=== PATIENT | male | born 1970 | race Caucasian/White ===

== ENCOUNTER → 2016-12-28 17:18 | Emergency (ER) | payer SELFPAY ==
[2016-12-28 17:30] VITALS: BP 162/98
== END | disposition left against medical advice (07) ==
LOC: ED 17:18
DX: Z53.21 Procedure and treatment not carried out due to patient leaving prior to being seen by health care provider (principal)

== ENCOUNTER 2018-05-17 08:44 | Emergency (ER) | payer BC ==
[2018-05-17 08:58] VITALS: BP 102/71
--- NOTE | 2018-05-17 09:24 | ED ---
Influenza-Like Illness - HPI Summary HPI Summary: 47 YO wm P/W FLU-LIKE ILLNESS X 4 DAYS, THINKS HE HAS THE FLU HAS F/C/ BODYACHES DARK URINE NO BM DUE TO DECREASED APPETITE. WORKS IN A NH AND NEEDS A WORKNOTE - History of Current Complaint Chief Complaint: UCGeneralIllness Time Seen by Provider: 05/17/18 09:11 Hx Obtained From: Patient Onset/Duration: Lasting Days Associated Signs & Symptoms: Fever, Myalgia, Cough Related Hx: Possible Flu/Infectious Exposure - Allergy/Home Medications Allergies/Adverse Reactions: Allergies Allergy/AdvReac Type Severity Reaction Status Date / Time clarithromycin Allergy Rash Verified 05/17/18 08:59 Horse/Equine Containing Allergy Anaphylatic Verified 05/17/18 08:59 Products Shock Home Medications: Home Medications Lurasidone(*) [Latuda] 60 mg PO DAILY 05/17/18 [History Confirmed 05/17/18] RX: Divalproex ER TAB(*) [Depakote ER TAB(*)] 500 mg PO BID 05/17/18 [History Confirmed 05/17/18] RX: Ibuprofen TAB* [Advil TAB*] 300 mg PO Q6H PRN 05/17/18 [History Confirmed ] RX: buPROPion SR TAB* [Wellbutrin SR TAB*] 300 mg PO DAILY 05/17/18 [History Confirmed 05/17/18] PMH/Surg Hx/FS Hx/Imm Hx Previously Healthy: Yes History: Reports: Hx Benign Prostatic Hyperplasia Sensory History: Reports: Hx Contacts or Glasses Denies: Hx Legally Blind, Hx Macular Degeneration - Hx in right eye; required surgery, Hx Deafness, Hx Hearing Aid Opthamlomology History: Reports: Hx Contacts or Glasses Denies: Hx Legally Blind, Hx Macular Degeneration - Hx in right eye; required surgery Psychiatric History: Reports: Hx Anxiety, Hx Depression, Hx Inpatient Treatment - [facility], Hx [facility] Tx, Hx Bipolar Disorder - Bipolar II, Hx Suicide Attempt - 2012 or 2013; cut wrists Denies: Hx Eating Disorder, Hx Panic Disorder, Hx Post Traumatic Stress Disorder, Hx Schizophrenia, Hx of Violent Episodes Against Others, Hx Substance Abuse - Surgical History Surgery Procedure, Year, and Place: Macular Degeneration Surgery Hx Anesthesia Reactions: No Infectious Disease History: Yes Infectious Disease History: Reports: Hx Clostridium Difficile, History Other Infectious Disease - Lice- 3 weeks ago; treated and is clear Denies: Hx Hepatitis, Hx Human Immunodeficiency Virus (HIV), Hx of Known/ Suspected MRSA, Hx Shingles, Hx Tuberculosis, Traveled Outside the [place] in Last 30 Days - Family History Known Family History: Positive: Hypertension, Diabetes, Other - bipolar disorder - Social History Alcohol Use: None Alcohol Amount: alcoholic Substance Use Type: Reports: None Substance Use Comment - Amount & Last Used: daily Smoking Status (MU): Former Smoker Type: Cigarettes Have You Smoked in the Last Year: Yes Review of Systems - ROS Summary Review of Systems Summary: Constitutional: FLU-LIKE ILLNESS Skin: Negative Eyes: Negative ENT: Negative Cardiovascular: Negative Respiratory: Negative Gastrointestinal: Negative Genitourinary: Negative Musculoskeletal: Negative Neurological: Negative Psychological: Normal All Other Systems Reviewed And Are Negative: Yes All Other Systems Reviewed And Are Negative: Yes Physical Exam - Summary Physical Exam Summary: Vital Signs Reviewed: Yes Appearance: Positive: No Pain Distress, ILL APPEARING Skin: Positive: Warm, DRY Head/Face: Positive: Normal Head/Face Inspection Eyes: Positive: Normal ENT: Positive: Normal ENT inspection, DRY MM Neck: Positive: Supple Respiratory/Lung Sounds: Positive: Clear to Auscultation. Negative: Rales, Rhonchi, Wheezes Cardiovascular: Positive: Normal, RRR, S1, S2 Abdomen Description: Positive: Nontender Musculoskeletal: Positive: Normal Neurological: Positive: Normal, CN Intact II-III Psychiatric: Positive: Normal, Affect/Mood Appropriate Vital Signs On Initial Exam: Initial Vitals Temp Pulse Resp BP Pulse Ox 36.4 C 86 16 102/71 97 05/17/18 08:53 05/17/18 08:53 05/17/18 08:53 05/17/18 08:53 05/17/18 08:53 Diagnostics - Vital Signs Vital Signs Temp Pulse Resp BP Pulse Ox 05/17/18 08:53 36.4 C 86 16 102/71 97 - Laboratory Lab Statement: Any lab studies that have been ordered have been reviewed, and results considered in the medical decision making process. Flu Symptom Course/Dx - Course Course Of Treatment: Rapid flu NEG, dehydration exacerbated byacute viral illness, continue supportive care, pt clinically improved with IVF in UC - Diagnoses Provider Diagnoses: Flu-like symptoms, Dehydration Discharge - Sign-Out/Discharge Documenting (check all that apply): Patient Departure All imaging exams completed and their final reports reviewed: No Studies - Discharge Plan Condition: Stable Disposition: HOME Patient Education Materials: Dehydration (ED), Viral Syndrome (ED) Forms: *Work Release Referrals: Lan Anglin MD [Primary Care Provider] - - Billing Disposition and Condition Condition: STABLE Disposition: Home
[2018-05-17 09:38] LABS: Influenza A Molecular NEGATIVE (Negative); Influenza B Molecular NEGATIVE (Negative)
[2018-05-17] MEDS ORDERED: D5NS 0.9% 1000 ML BAG* 1,000 ML IV SCH (10:00)
[2018-05-17] MEDS ORDERED: D5W 1/2 NS 1000 ML BAG* 1,000 ML IV SCH (10:00)
== END 2018-05-17 10:52 | disposition home or self-care (01) ==
LOC: UCEAST 08:44
DX: R50.9 Fever, unspecified (principal); E86.0 Dehydration; M79.10 Myalgia, unspecified site; R05 Cough; F41.9 Anxiety disorder, unspecified; F32.9 Major depressive disorder, single episode, unspecified; Z88.1 Allergy status to other antibiotic agents; Z87.891 Personal history of nicotine dependence; Z91.09 Other allergy status, other than to drugs and biological substances
CPT/HCPCS: 96360; 99211; G0463

== ENCOUNTER 2018-06-10 13:24 | Inpatient (IN) | payer BC ==
[2018-06-10] MEDS ORDERED: Mouth Piece, Nicotine* 1 EACH CARTRIDGE INH PRN (13:44)
--- NOTE | 2018-06-10 14:10 | ED ---
Psychiatric Complaint - HPI Summary HPI Summary: This patient is a 47 year old M brought in by police with a chief complaint of constant SI since two weeks ago. Patient reports hearing negative voices. Patient denies HI or abd pain. The patient has been drinking EtOH today but states he has not had any recreational drugs. [facility] officer states that their initial call was for a disturbance by neighbors. The patient told the police that he stopped taking his medication and has been drinking more than usual. The patient has attempted suicide in the past. His mother lives nearby in [place]. The patient says the voices are telling him that he sucks and he should kill himself. PMHX Bipolar disorder. SHX retired nurse. RX Wellbutrin, Depakote, Naltrexone. - History Of Current Complaint Chief Complaint: EDSuicidal Time Seen by Provider: 06/10/18 13:42 Hx Obtained From: Patient Onset/Duration: Gradual Onset, Lasting Weeks Timing: Constant Character: Depressed Related History: Positive For: Prior Psychiatric Issues Has Suicidal: Reports: Thoughts, Has Prior Attempt(s) Has Homicidal: Denies: Thoughts Ingestion History: Type/Name Of Drug - EtOH, vodka - Risk Factor(s) Completed Suicide Risk Factors: Male, Past Suicide Attempt - Allergies/Home Medications Allergies/Adverse Reactions: Allergies Allergy/AdvReac Type Severity Reaction Status Date / Time clarithromycin Allergy Rash Verified 06/10/18 14:24 Horse/Equine Containing Allergy Anaphylatic Verified 06/10/18 14:24 Products Shock Home Medications: Home Medications Atorvastatin* [Lipitor 20 MG*] 20 mg PO DAILY 06/10/18 [History Confirmed ] Lisinopril 20 mg PO DAILY 06/10/18 [History Confirmed 06/10/18] Naltrexone TAB* 50 mg PO DAILY 06/10/18 [History Confirmed 06/10/18] Valacyclovir HCl [Valacyclovir] 500 mg PO DAILY 06/10/18 [History Confirmed ] diphenhydrAMINE HCl [Benadryl Allergy] 50 mg PO BEDTIME PRN 06/10/18 [History Confirmed 06/10/18] PMH/Surg Hx/FS Hx/Imm Hx History: Reports: Hx Benign Prostatic Hyperplasia Sensory History: Reports: Hx Contacts or Glasses Denies: Hx Legally Blind, Hx Macular Degeneration - Hx in right eye; required surgery, Hx Deafness, Hx Hearing Aid Opthamlomology History: Reports: Hx Contacts or Glasses Denies: Hx Legally Blind, Hx Macular Degeneration - Hx in right eye; required surgery Psychiatric History: Reports: Hx Anxiety, Hx Depression, Hx Inpatient Treatment - [facility], Hx [facility] Tx, Hx Bipolar Disorder - Bipolar II, Hx Suicide Attempt - 2013 or 2014; cut wrists Denies: Hx Eating Disorder, Hx Panic Disorder, Hx Post Traumatic Stress Disorder, Hx Schizophrenia, Hx of Violent Episodes Against Others, Hx Substance Abuse - Surgical History Surgery Procedure, Year, and Place: Macular Degeneration Surgery Hx Anesthesia Reactions: No Infectious Disease History: No Infectious Disease History: Reports: Hx Clostridium Difficile, History Other Infectious Disease - Lice- 3 weeks ago; treated and is clear Denies: Hx Hepatitis, Hx Human Immunodeficiency Virus (HIV), Hx of Known/ Suspected MRSA, Hx Shingles, Hx Tuberculosis, Traveled Outside the US in Last 30 Days - Family History Known Family History: Positive: Hypertension, Diabetes, Other - bipolar disorder - Social History Alcohol Use: None Alcohol Amount: alcoholic Substance Use Type: Reports: None Substance Use Comment - Amount & Last Used: daily Smoking Status (MU): Former Smoker Type: Cigarettes Have You Smoked in the Last Year: Yes Review of Systems Negative: Abdominal Pain Psychological: Other - SI, hearing voices Negative: Other - HI All Other Systems Reviewed And Are Negative: Yes Physical Exam - Summary Physical Exam Summary: GENERAL: Patient is a well-developed and nourished male who is lying comfortable in the stretcher. Patient is not in any acute respiratory distress. Sad affect, tearful. He states he has SI but no HI. HEAD AND FACE: Normocephalic EYES: PERRLA, EOMI x 2. EARS: Hearing grossly intact. MOUTH: Oropharynx within normal limits. NECK: Supple, trachea is midline, no adenopathy, no JVD, no carotid bruit. CHEST: Symmetric, no tenderness at palpation LUNGS: Clear to auscultation bilaterally. No wheezing or crackles. CVS: Regular rate and rhythm, S1 and S2 present, no murmurs or gallops appreciated. ABDOMEN: Soft, non-tender. Bowel sounds are normal. No abdominal abnormal pulsations. EXTREMITIES: Full ROM in all major joints, no edema, no cyanosis or clubbing. NEURO: Alert and oriented x 3. No acute neurological deficits. Speech is normal and follows commands. SKIN: Dry and warm Triage Information Reviewed: Yes Vital Signs On Initial Exam: Initial Vitals Temp Pulse Resp BP Pulse Ox 98.4 F 87 18 140/90 95 06/10/18 13:25 06/10/18 13:25 06/10/18 13:25 06/10/18 13:25 06/10/18 13:25 Vital Signs Reviewed: Yes Diagnostics - Vital Signs Vital Signs Temp Pulse Resp BP Pulse Ox 06/10/18 13:25 98.4 F 87 18 140/90 95 - Laboratory Result Diagrams: 06/10/18 14:18 06/10/18 14:18 Lab Statement: Any lab studies that have been ordered have been reviewed, and results considered in the medical decision making process. Course/Dx - Course Course Of Treatment: This patient is a 47 year old M brought in by police with a chief complaint of constant SI since two weeks ago. Patient reports hearing negative voices. Patient denies HI or abd pain. Bloodwork/UA obtained. In the ED course the patient was given Nicotine inhaler. The patient will be signed out by Dr. Gr to Dr. Mcguire, awaiting sobriety and mental health evaluation. He needs to be constantly watched due to his SI. - Differential Dx/Clinical Impression Provider Diagnosis: Depression, Alcohol intoxication Discharge - Sign-Out/Discharge Documenting (check all that apply): Sign-Out Patient Signing out patient TO: Elle Mcguire Patient Received Moderate/Deep Sedation with Procedure: No - Discharge Plan Referrals: Lan Anglin MD [Primary Care Provider] - - Attestation Statements Document Initiated by Scribe: Yes Documenting Scribe: Paresh Ordonez Provider For Whom Stephanie is Documenting (Include Credential): Nataliia Gr MD Scribe Attestation: I, Paresh Ordonez, scribed for Nataliia Gr MD on 06/10/18 at 1825. Scribe Documentation Reviewed: Yes Provider Attestation: The documentation as recorded by the scribeParesh accurately reflects the service I personally performed and the decisions made by me, Nataliia Gr MD Status of Scribe Document: Viewed
[2018-06-10] MEDS: Nicotine Inhaler* 10 MG AMP INH PRN ×2 (14:23→23:01)
[2018-06-10 14:28] LABS: ABS Basophils 0.1 10^3/ul (0-0.2); ABS Eosinophils 0.2 10^3/ul (0-0.6); ABS Lymphocytes 2.2 10^3/ul (1.0-4.8); ABS Monocytes 0.7 10^3/ul (0-0.8); ABS Neutrophils 2.5 10^3/ul (1.5-7.7); ABS Nucleated RBC 0 10^3/ul; Eosinophil % 3.7 %; Hematocrit 41 % (36-46); Lymphocyte % 39.2 %; Mean Corpuscular HGB Conc 35 g/dL (31-36); Mean Corpuscular Hemoglobin 32 pg (27-31); Mean Corpuscular Volume 93 fL (80-94); Mean Platelet Volume 7.2 fL (7.4-10.4); Nucleated Red Blood Cells % 0.1; Platelet Count 228 10^3/uL (150-450); Red Blood Count 4.37 10^6 /uL (4.18-5.48); Red Cell Distribution Width 13 % (10.5-15); White Blood Count 5.7 10^3/uL (3.5-10.8)
[2018-06-10 14:43] LABS: ALT 11 U/L (7-52); AST 16 U/L (13-39); Albumin 4.2 g/dL (3.2-5.2); Albumin/Globulin Ratio 1.7 (1-3); Alkaline Phosphatase 40 U/L (34-104); Anion Gap 12 mmol/L (2-11); BUN/Creatinine Ratio 12.2 (8-20); Blood Urea Nitrogen 11 mg/dL (6-24); CO2 Carbon Dioxide 25 mmol/L (22-32); Calcium 9.1 mg/dL (8.6-10.3); Chloride 103 mmol/L (101-111); EGFR African American 108.5 (>60); EGFR Non-African American 89.7 (>60); Globulin 2.5 g/dL (2-4); Glucose 106 mg/dL (70-100); Potassium 3.4 mmol/L (3.5-5.0); Sodium 140 mmol/L (135-145); Total Protein 6.7 g/dL (6.4-8.9)
[2018-06-10 15:01] LABS: Acetaminophen < 15 mcg/mL; Alcohol 256 mg/dL (<10); Salicylate < 2.50 mg/dL (<30)
[2018-06-10 15:15] LABS: TSH (Thyroid Stimulating Horm) 2.39 mcIU/mL (0.34-5.60)
[2018-06-10 15:53] LABS: Urine Appearance Clear; Urine Bacteria Absent (Absent); Urine Bilirubin Negative (Negative); Urine Blood Negative (Negative); Urine Color Yellow; Urine Glucose Negative (Negative); Urine Ketones Negative (Negative); Urine Nitrite Negative (Negative); Urine Protein Negative (Negative); Urine Red Blood Cell Trace(0-2/hpf) (Absent); Urine Specific Gravity 1.008 (1.010-1.030); Urine Urobilinogen Negative (Negative); Urine White Blood Cell Trace(0-5/hpf) (Absent)
[2018-06-10 16:01] LABS: Barbiturates Urine Screen None Detected (None Detect); Benzodiazepine Urine Screen None Detected (None Detect); Urine Cannabinoids Screen Presumptive Positive (None Detect)
--- NOTE | 2018-06-10 19:13 | ED ---
Progress - Progress Note Progress Note: The patient was signed out by Dr. Gr to Dr. Mcguire, awaiting sobriety and MHE. Re-Evaluation - Re-Evaluation First Eval Re-Evaluation Time: 21:00 Comment: Patient is cleared for MHE. Course/Dx - Course Course Of Treatment: The patient was signed out by Dr. Gr to Dr. Mcguire, awaiting sobriety and MHE. Patient is cleared for MHE at 2100. 0114 Patient s case had been reviewed by Dr. Gilmore, patient will be admitted to [facility]. - Diagnoses Provider Diagnoses: Substance induced mood disorder - Provider Notifications Discussed Care Of Patient With: Jann Gilmore Time Discussed With Above Provider: 01:14 Instructed by Provider To: Other - 0114 Patients case had been reviewed by Dr. Gilmore, patient will be admitted to [facility]. Discharge - Sign-Out/Discharge Documenting (check all that apply): Patient Departure - admit, Receiving Sign- Out Receiving patient FROM: Nataliia Gr Patient Received Moderate/Deep Sedation with Procedure: No - Discharge Plan Condition: Good Disposition: PSYCHIATRIC FACILITY-[facility] Referrals: Lan Anglin MD [Primary Care Provider] - - Attestation Statements Document Initiated by Scribe: Yes Documenting Scribe: Ranjit Grier Provider For Whom Scribe is Documenting (Include Credential): Elle Mcguire MD Scribe Attestation: Ranjit Barros and Jasvir Grier, scribed for Elle Mcguire MD on 06/11/18 at 0138. Status of Scribe Document: Ready
[2018-06-11] MEDS ORDERED: Acetaminophen TAB* 325 MG PO PRN (04:09)
[2018-06-11] MEDS ORDERED: Al Hydrox/Mg Hydrox/Simet LIQ* 30 ML UDC PO PRN (04:09)
[2018-06-11] MEDS ORDERED: LORazepam IM 0-6 mg for WAM protocol IM SCH (05:00)
[2018-06-11] MEDS ORDERED: LORazepam PO 0-6 for WAM protocol PO SCH (05:00)
[2018-06-11] MEDS: Nicotine Inhaler* 10 MG AMP INH PRN ×2 (08:14→21:37)
[2018-06-11] MEDS: Multivitamins/Minerals TAB PO SCH (08:14)
[2018-06-11] MEDS: Divalproex Sprinkle CAP* 125 MG PO SCH ×2 (11:53→21:36)
[2018-06-11] MEDS: BuPROPion XL* 300 MG TAB.XL PO SCH (11:55)
[2018-06-11] MEDS: Naltrexone TAB* 50 MG TAB PO SCH (11:55)
[2018-06-11] MEDS: Lisinopril TAB* 10 MG PO SCH (11:55)
[2018-06-11] MEDS: Nicotine PATCH 21 MG/24 HR* PATCH TRANSDERM SCH (11:56)
[2018-06-11] MEDS ORDERED: Lurasidone(*) 40 MG TAB PO SCH ×3 (12:00→17:00)
[2018-06-11] MEDS ORDERED: Lurasidone(*) 20 MG TAB PO SCH ×2 (12:01→17:00)
[2018-06-11] MEDS ORDERED: Atorvastatin* 40 MG TAB PO SCH (17:00)
--- NOTE | 2018-06-11 20:43 | HP ---
HISTORY AND PHYSICAL: DATE OF ADMISSION: 06/11/18 PROVIDER: Helga Mai NP SUPERVISING PHYSICIAN: Jon Burns MD * (DICTATED BY HELGA MAI NP) JUSTIFICATION FOR ADMISSION: The patient is in need of 24-hour supervision and care secondary to suicidal ideation. CHIEF COMPLAINT: "I got the flu and couldn't eat or drinks for 5 days. I was hearing more voices and I had high anxiety." HISTORY OF PRESENT ILLNESS: The patient is a 47-year-old partnered white male with a history of bipolar 2 disorder, who arrives brought in law enforcement due to having suicidal ideation without a plan. He is here on a voluntary status. 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 He states that he has a girlfriend, who is half his age. She has bipolar disorder and he has not a lot of support at home. He states that at one point he was sober for 4 months by going to and taking naltrexone. In the mean time, he is no longer taking naltrexone and he believes that the only reason he is here in the hospital is that he got the flu and could not eat or drink for 5 days, including taking his medications, and the medications stopped working. Ugo takes a somewhat victimized stance and appears to be making some choices like drinking a half a bottle of vodka a day for many days that are not good for him. He states he does not like the dayshift people at [employer], so does not want switch positions from nights. He doesn't really have plan for what he was like to be doing. He states that "cocktail" of medications that he is taking include Latuda 60, Wellbutrin 300, naltrexone 50, Depakote sprinkles 500 mg b.i.d., atorvastatin, lisinopril 20. 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 He also had psychiatric hospitalization at [facility] for ECT, he states 40 to 50 times. He says "it took me years to recover from that" and he says he will never do it again. He states he has hallucinations every day. He stated in the evaluation that they are negative voices that are telling him he is worthless. PAST MEDICAL HISTORY: He has diagnoses of hypertension as well as hyperlipidemia, which are in good control under mediations. ALLERGIES: He is allergic to BIAXIN. His reaction is a rash. He is also allergic to HORSE DERIVED PRODUCTS and his reaction is anaphylactic shock. FAMILY HISTORY: Ugo has one younger brother. His mother suffers from depression and his father is an alcoholic. SUBSTANCE ABUSE HISTORY: Ugo has an extensive history of alcohol dependence since his early adulthood. There are times that he drinks excessively and then slows down. His favorite drink according to him is beer with hard liquor. In the past, he reports having blackouts as well as at least 1 DWI, for which he lost his drivers license. In the past, he has smoked marijuana on a pretty regular basis. His urine screen today was positive for cannabinoids. In the past, he has received treatment for drug and alcohol dependence. He once was sober for couple of years. Most recently, he was sober for 4 months. He has tendency to relapse which results in job losses and relationship problems. PERSONAL AND SOCIAL HISTORY: Ugo reports that he was born in [place], [place] because of his father's job. After high school, he worked different jobs on different time frames. He had a hard time maintaining any job for a long period of time because of mostly his drinking habits as well as his mental health problems. He was 3 times, the longest period that he remained in the marriage was 6 years. He does not have any children. REVIEW OF SYSTEMS: Ugo reports feeling fatigued. He denies shortness of breath, heat or cold intolerance, chest pain or abdominal pain. He denies neurological symptoms. He denies fevers or changes in weight. PHYSICAL EXAMINATION GENERAL: Ugo is a well developed and nourished male, who is lying in bed. He is not in any acute respiratory distress. He is sad and tearful. He states he has suicidal ideation, but no homicidal ideation. VITAL SIGNS: On 06/11/18 at 13:15, pulse was 67, respirations 16, O2 sat 97, blood pressure 149/94. HEENT: Head and face: Normocephalic. Eyes: PERRLA. EOMI x2. Ears: Grossly hearing intact. Mouth: Oropharynx within normal limits. NECK: Supple. Trachea is midline. No adenopathy. No JVD. No carotid bruit. CHEST: Symmetric. No tenderness on palpation. LUNGS: Clear to auscultation bilaterally. No wheezing or crackles. CVS: Regular rate and rhythm. S1 and S2 present. No murmurs or gallops appreciated. ABDOMEN: Soft and nontender. Bowel sounds are normal. No abnormal pulsations. EXTREMITIES: Full range of motions in all major joints. No edema. No cyanosis or clubbing. NEUROLOGIC: Alert and oriented x4. No acute neurological deficit. Speech is normal and follows commands. SKIN: Dry and warm. LABORATORY DATA: On 06/10/18 at 14:18, MCH was high at 32, MPV was low at 7.2 , potassium was low at 3.4, anion gap is high at 12, glucose is slightly high at 106. TSH is 2.39. His urine screen, specific gravity is low at 1.008, leukocyte esterase is trace. There is urine ascorbic acid present. Toxicology screen indicates positive cannabinoid screen and his serum alcohol is 256. MENTAL STATUS EXAM: This is an averagely built man who comes to the hospital with suicidal ideation in the context of having had too much to drink and feeling depressed for the past few days. He is seeming tired. He sort of leans against the wall. He is calm and cooperative and speaks very softly in a normal rate and tone. He seems very sad. He has a constricted affect. His thought processes are sequential and logical. His thought content is free of delusions. He is suicidal. He is not homicidal. He states he has auditory hallucinations every day and has since he was a child. His insight is good. His judgment is fair. He is alert and oriented x4. DIAGNOSIS: Bipolar II disorder, rule out cluster B traits. IMPRESSION: Ugo is a 47-year-old man who comes to the hospital by law enforcement following suicidal ideation without a plan. PLAN/RECOMMENDATIONS: The patient is admitted to adult behavioral health unit and placed on q.15 minute checks for his own safety. He is encouraged to participate in the supportive milieu, individual, and group therapies. Estimated length of stay is 5 to 7 days. We may obtain an MMPI for diagnostic clarification. We will titrate medications to efficacy and monitor for mood and thought content. Discharge planning will include family involvement if possible and outpatient providers. HELGA MAI, BOARDING ROOM FIXER [id number]/[facility] #: [id number] [facility] BRONX HOSPITALCamila
[2018-06-11] MEDS ORDERED: diPHENhydraMINE PO* 25 MG PO SCH (21:00)
[2018-06-11] MEDS ORDERED: Nicotine Patch Removal NOTE FOLLOW UP SCH (21:00)
[2018-06-11] MEDS: Nicotine GUM* 2 MG PO PRN (21:37)
[2018-06-12 07:51] VITALS: BP 133/102
[2018-06-12] MEDS: Naltrexone TAB* 50 MG TAB PO SCH (07:52)
[2018-06-12] MEDS: Multivitamins/Minerals TAB PO SCH (07:52)
[2018-06-12] MEDS: Divalproex Sprinkle CAP* 125 MG PO SCH (07:52)
[2018-06-12] MEDS: Lisinopril TAB* 10 MG PO SCH (07:52)
[2018-06-12] MEDS: BuPROPion XL* 300 MG TAB.XL PO SCH (07:52)
[2018-06-12] MEDS: Nicotine GUM* 2 MG PO PRN ×2 (07:53→12:39)
[2018-06-12] MEDS: Nicotine Inhaler* 10 MG AMP INH PRN ×2 (07:53→12:39)
[2018-06-12] MEDS: Nicotine PATCH 21 MG/24 HR* PATCH TRANSDERM SCH (07:53)
[2018-06-12 08:26] LABS: TSH (Thyroid Stimulating Horm) 1.42 mcIU/mL (0.34-5.60)
--- NOTE | 2018-06-12 11:28 | DCNOTE ---
Subjective - Subjective Service Types: [address] [facility] Day Mgmt simple under 30 min Discharge Date: 06/12/18 Subjective: Ugo is agreeable to discharge. He is pleasant and eager for discharge. He is scheduled to have a Vivitrol injection today. He does not have any new medications other than the Vivitrol. He believed that not being able to take his medications for 5 days precipitated this depression and that reinstating these medications overnight has led to recovery. It is more likely that his not having to go to work and getting some sleep has been helpful, too. Objective - Appearance Appearance: Healthy Appearing Dysmorphic Features: No Hygiene: Mal-odorous Grooming: Disheveled - Behavior Psychomotor Activities: Normal Exhibits Abnormal Movement: No - Attitude and Relatedness Attitude and Relatedness: Cooperative Eye Contact: Good - Speech Quality: Unpressured Latencies: Normal Quantity: Appropriate - Mood Patient's Decription of Mood: "Great" - Affect Observed Affect: Good Affect Consistent with: Euthymia - Thought Process Patient's Thought Process: Coherent, Goal Directed Thought Content: No Passive Wish, No Suicidal Planning, No Homicidal Ideation, No Paranoid Ideation - Sensorium Experiencing Hallucinations: No, Sensorium is Clear Type of Hallucinations: Visual: No, Auditory: No, Command: No - Level of Consciousness Level of Consciousness: Alert Orientation: Yes Intact, Yes Orientated to Time, Yes Orientated to Place, Yes Orientated to Person - Impulse Control Impulse Control: Impaired - Insight and Judgement Insight and Judgement: Good - Group Participation Particating in Group Activities: Yes - Medication Management Medication Management Adherence: Yes DC Assessment - Assessment Clinical Impression: Ugo is a 47-year-old man who comes to the hospital with suicidal ideation while intoxicated and feeling as though life is not worth living and he lists categorically things that are unsatisfactory including his job and his girlfriend. Merits Inpatient Hospitalization: No Clear for Discharge: Adequate Clinical Respons, Acceptable Safety Profile, Low Utility of Inpt Care Inpatient DSM-V Dx: F31.30 Discharge Planning - Discharge Planning Discharge Plan: Outpatient Follow Up Out[facility] Recommendations for Continuing Care: Medication Management, Psychotherapy, Substance Abuse Counseling Medications: Current Medications Acetaminophen (Tylenol Tab*) 650 mg PO Q4H PRN PRN Reason: PAIN; OR TEMP >101 Al Hydrox/Mg Hydrox/Simethicone (Maalox Plus*) 30 ml PO Q4H PRN PRN Reason: INDIGESTION Atorvastatin Calcium (Lipitor*) 40 mg PO 1700 [facility] Last Admin: 06/11/18 17:19 Dose: 40 mg Bupropion HCl (Bupropion Xl*) 300 mg PO DAILY [facility] Last Admin: 06/12/18 07:52 Dose: 300 mg Device (Nicotine Mouth Piece*) 1 each INH .USE W/ CARTRIDGE PRN PRN Reason: WITHDRAWAL - NICOTINE Last Admin: 06/10/18 14:23 Dose: 1 each Diphenhydramine HCl (Benadryl Po*) 25 mg PO BEDTIME [facility] Last Admin: 06/11/18 21:33 Dose: 25 mg Divalproex Sodium (Depakote Sprinkle Cap*) 500 mg PO BID [facility] Last Admin: 06/12/18 07:52 Dose: 500 mg Lisinopril (Prinivil Tab*) 20 mg PO DAILY [facility] Last Admin: 06/12/18 07:52 Dose: 20 mg Lorazepam (Ativan Tab(*)) 0 - 6 mg PO .PER [facility] PARAMETERS [facility]; Protocol Lorazepam (Ativan Inj*) 0 - 6 mg IM .PER [facility] PROTOCOL [facility]; Protocol Lurasidone HCl (Latuda) 40 mg PO 1700 [facility] Last Admin: 06/11/18 17:19 Dose: 40 mg Lurasidone HCl (Latuda) 20 mg PO 1700 [facility] Last Admin: 06/11/18 17:19 Dose: 20 mg Multivitamins/Minerals (Theragran/Minerals Tab*) 1 tab PO DAILY [facility] Last Admin: 06/12/18 07:52 Dose: 1 tab Naltrexone HCl (Naltrexone Tab*) 50 mg PO DAILY [facility]; Protocol Last Admin: 06/12/18 07:52 Dose: 50 mg Naltrexone HCl (Vivitrol Inj) 380 mg IM ONCE ONE Stop: 06/12/18 11:51 Nicotine (Nicotine Inhaler*) 10 mg INH Q2H PRN PRN Reason: CRAVING Last Admin: 06/12/18 07:53 Dose: 10 mg Nicotine (Nicotine Patch 21 Mg/24 Hr*) 1 patch TRANSDERM DAILY [facility] Last Admin: 06/12/18 07:53 Dose: 1 patch Nicotine Polacrilex (Nicotine Gum*) 2 mg PO Q2H PRN PRN Reason: CRAVING Last Admin: 06/12/18 07:53 Dose: 2 mg Pharmacy Profile Note (Nicotine Patch Removal Note*) 1 note FOLLOW UP 2100 [facility] Last Admin: 06/11/18 21:39 Dose: 1 note Discharge Planning: Prescriptions provided for discharge [x] Yes [] No Follow up care details as per social work arrangements. Patient response to discharge plan: [x] eager for discharge [] agreeable with discharge plan [] ambivalent about discharge [] disagrees with discharge today
[2018-06-12] MEDS ORDERED: Naltrexone INJ 380 MG IM ONE (11:50)
--- NOTE | 2018-06-13 10:33 | DS ---
DISCHARGE SUMMARY: DATE OF ADMISSION: 06/11/18 DATE OF DISCHARGE: 06/12/18 PROVIDER: Helga Mai NP, in Psychiatry. SUPERVISING PHYSICIAN: Dr. Jon Burns* (dictated by Helga Mai NP). DIAGNOSES: Substance induced mood disorder, bipolar I disorder. CONDITION AT THE TIME OF DISCHARGE: Improved. Psychiatrically cleared, stable. Ugo participated in some groups and was social with select peers, but was generally isolated. He has done well here psychiatrically. He tolerated the restart of his medications well and he will be attending [facility]. MENTAL STATUS EXAMINATION: At the time of discharge, Ugo is calm, cooperative , and he makes good eye contact. Alert and oriented x4. Grooming is fair. Speech pace is normal. Thought processes are logical. He is not psychotic or delusional. He denies AH, VH, SI, and HI. His insight is good. His judgment is fair. He states he is going to follow up and he is urged to see his therapist. DISCHARGE INSTRUCTIONS TO THE PATIENT: A. Medications: Lipitor 20 mg daily, bupropion SR 300 mg daily, diphenhydramine 50 mg at bedtime as needed for insomnia, Depakote Sprinkle 500 mg b.i.d., lisinopril 20 mg daily, Latuda 60 mg daily with the meal, nicotine gum 2 mg q.2 hours dispensed 200, nicotine patch 21 mg, valacyclovir 500 mg daily. B. Diet is regular. C. Activities as tolerated. Ugo is a smoker, but he has declined a referral to [facility] Sm[facility] Quit[facility] at this time. If he decides to access this free service in the future, he can contact the Quitline toll free at . There are no studies pending at the time of discharge. D. Followup care: He has an appointment at [facility] on at 11 a.m. He has another appointment at [facility] on 06/21/18 at 2 p.m. He is also referred back to his primary care provider Dr. Lan Anglin for an appointment within 30 days. He is being discharged home. E. substance abuse followup: He has declined a referral stating that he only drank heavily for a few days and it is not a problem. He did accept an injection of Vivitrol. HOSPITAL COURSE: Part A. Chief Complaint: "I got the flu and could not eat or drink for 5 days. I was hearing more voices and I had high anxiety." The patient is a 47-year-old partnered white male with a history of bipolar I disorder, who arrives brought in by law enforcement due to having suicidal ideation without a plan. He is here on a voluntary status. 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 He states that he has a girlfriend who is half his age. She has bipolar disorder and he has not a lot of support at home. He states that at one point he was sober for 4 months by going to and taking naltrexone. In the meantime, he is no longer taking natrexone and he believes that the only reason he is here in the hospital is that he got the flu and could not eat or drink for 5 days including taking his medications and therefore the medications stopped working. Ugo takes a somewhat victimized stance and appears to be making some choices like drinking half a bottle of vodka a day for many days that are not good for him. He states he does not like the dayshift people at [employer], so does not want switch positions from night. He does not really have a plan for what he would like to be doing. He states that the "cocktail" of medications that he is taking include Latuda 60, Wellbutrin 300, naltrexone 50, Depakote Sprinkle 500 b.i.d., atorvastatin, and lisinopril 20. He states that because of his shift supervisor, his "circadian rhythms are all blanked up." Part B: Psychiatric treatment was rendered. Ugo was admitted to the adult behavioral unit and placed on 15-minute checks for safety. Ugo did go to some groups and interacted with a few peers but generally isolated himself. He tolerated the addition of Vivitrol to his medication regimen. He will be due for his next Vivitrol injectionon July 11, 2018. I did attempt to change him from Wellbutrin SR to Wellbutrin XR. He is on an antipsychotic; therefore, it is important to note that his hemoglobin A1c is 5.5 , his triglycerides are 159, cholesterol 208, LDL cholesterol 127, HDL cholesterol 49, and his TSH is between 1.42 and 2.39. We did not meet with his family; that was not of interest to Ugo. He was very eager to leave. He is improved. His affect is brighter. He is not endorsing suicidal thoughts. He is feeling as though it is time to leave and he is delighted when we tell him that that is the plan for today. HELGA MAI, BRENDON [id number]/[facility] #: [id number] MARA
== END 2018-06-12 14:15 | disposition home or self-care (01) | DRG 775 ==
LOC: ED 13:24 → BSU 06-11 03:51
PROVIDERS: ADMIT Psychiatry & Neurology Psychiatry; ATTEND Psychiatry & Neurology Psychiatry
DX: F10.94 Alcohol use, unspecified with alcohol-induced mood disorder (principal); R45.851 Suicidal ideations; F10.929 Alcohol use, unspecified with intoxication, unspecified; N40.0 Benign prostatic hyperplasia without lower urinary tract symptoms; F41.9 Anxiety disorder, unspecified; E78.5 Hyperlipidemia, unspecified; F17.210 Nicotine dependence, cigarettes, uncomplicated; I10 Essential (primary) hypertension; F31.9 Bipolar disorder, unspecified; Y90.8 Blood alcohol level of 240 mg/100 ml or more; Z88.8 Allergy status to other drugs, medicaments and biological substances; Z91.5 Personal history of self-harm; Z88.1 Allergy status to other antibiotic agents; Z86.19 Personal history of other infectious and parasitic diseases; Z82.49 Family history of ischemic heart disease and other diseases of the circulatory system; Z83.3 Family history of diabetes mellitus; Z81.1 Family history of alcohol abuse and dependence
CPT/HCPCS: 36415; 80053; 80061; 80307; 80320; 80329; 81003; 81015; 83036; 84443; 85025; 87086; 99222; 99238; 99284; A9270-GY; G0480; J2315